=== PATIENT | female | born 1965 ===

== ENCOUNTER 2018-11-05 03:08 | Emergency (ER) | payer MEDICAID, OTHER ==
[2018-11-05 04:30] LABS: Absolute Lymphocytes (CBC) 1.6 K/uL (0.7-4.9); Basophils % 0.7 % (0-1.3); Eosinophils % 2.4 % (0-4.4); Hematocrit 43.3 % (36.0-45.0); Lymphocytes % 25.2 % (15.3-44.8); MPV 9.8 fL (7.6-11.3); Monocytes % 8.7 % (3.3-12.3); RBC Red Blood Cell Count 4.58 M/uL (3.86-4.86)
[2018-11-05 04:44] LABS: ALT/SGPT 127 U/L (12-78); AST/SGOT 92 U/L (15-37); Albumin 3.9 g/dL (3.4-5.0); Alkaline Phosphatase 86 U/L (45-117); BUN Blood Urea Nitrogen 8 mg/dL (7-18); Bicarbonate 26 mmol/L (21-32); Bilirubin Direct 0.2 mg/dL (0-0.2); Bilirubin Total 0.5 mg/dL (0.2-1.0); Glucose Level 88 mg/dL (74-106); Lipase 121 U/L (73-393); NT PRO-BNP 44 pg/mL (<125); Potassium 3.6 mmol/L (3.5-5.1); Protein, Total 7.1 g/dL (6.4-8.2); Sodium Level 139 mmol/L (136-145); Troponin (Emerg Dept Use Only) < 0.02 ng/mL (0.0-0.045)
--- NOTE | 2018-11-05 06:50 | ER ---
Nurse's Notes [facility] Name: Naa Lewis Age: 53 yrs Sex: Female : 1965 Arrival Date: 11/05/2018 Time: 03:14 Bed 19 Private MD: Diagnosis: Chest pain, unspecified Presentation: 11/05 03:23 Presenting complaint: Patient states: left chest wall pain that radiates to back ak1 started at 0030. pt admits to ETOH. pt denies N/V, denies SOB. Transition of care: patient was not received from another setting of care. Onset of symptoms was November 05, 2018. Risk Assessment: Do you want to hurt yourself or someone else? Patient reports no desire to harm self or others. Initial Sepsis Screen: Does the patient meet any 2 criteria? No. Patient's initial sepsis screen is negative. Does the patient have a suspected source of infection? No. Patient's initial sepsis screen is negative. Care prior to arrival: None. 03:23 Method Of Arrival: Ambulatory ak1 03:23 Acuity: ASHER 3 ak1 Triage Assessment: 03:25 General: Appears in no apparent distress. Behavior is cooperative, anxious. Pain: ak1 Complains of pain in anterior aspect of left upper chest and mid-sternal area Pain radiates to left scapular area and thoracic area. EENT: No signs and/or symptoms were reported regarding the EENT system. Neuro: No deficits noted. Cardiovascular: Reports chest pain, Denies shortness of breath, vomiting. Respiratory: No deficits noted. GI: No signs and/or symptoms were reported involving the gastrointestinal system. : No signs and/or symptoms were reported regarding the genitourinary system. Derm: No signs and/or symptoms reported regarding the dermatologic system. Musculoskeletal: No signs and/or symptoms reported regarding the musculoskeletal system. 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 - Social history:: Smoking status: Patient uses tobacco products, denies chronic smoking, but will smoke occasionally, Patient uses alcohol, had vodka tonight. - Ebola Screening: : No symptoms or risks identified at this time. - Family history:: not pertinent. - Hospitalizations: : No recent hospitalization is reported. Screenin:27 Abuse screen: Denies threats or abuse. Denies injuries from another. Nutritional ak1 screening: No deficits noted. Tuberculosis screening: No symptoms or risk factors identified. Fall Risk None identified. Assessment: 03:30 General: Appears in no apparent distress. comfortable, Behavior is calm, cooperative, aa1 appropriate for age. Pain: Complains of pain in anterior aspect of left upper chest Pain radiates to thoracic area and left scapular area. Neuro: Level of Consciousness is awake, alert, obeys commands, Oriented to person, place, time, situation, Moves all extremities. Full function Gait is steady, Speech is normal. Cardiovascular: Reports chest pain, palpitations, Denies Heart tones S1 S2 present Capillary refill < 3 seconds Patient's skin is warm and dry. Rhythm is regular. Respiratory: Airway is patent Respiratory effort is even, unlabored, Respiratory pattern is regular, symmetrical, Breath sounds are clear bilaterally. GI: No signs and/or symptoms were reported involving the gastrointestinal system. : No signs and/or symptoms were reported regarding the genitourinary system. EENT: No signs and/or symptoms were reported regarding the EENT system. Derm: Skin is intact, is healthy with good turgor, Skin is pink, warm \T\ dry. 04:49 Reassessment: Patient appears in no apparent distress at this time. Patient and/or aa1 family updated on plan of care and expected duration. Pain level reassessed. Patient is alert, oriented x 3, equal unlabored respirations, skin warm/dry/pink. Awaiting provider reassessment. 05:28 Reassessment: Patient appears in no apparent distress at this time. Patient and/or aa1 family updated on plan of care and expected duration. Pain level reassessed. Patient is alert, oriented x 3, equal unlabored respirations, skin warm/dry/pink. Pt taken to CT at this time. 06:41 Reassessment: Patient appears in no apparent distress at this time. Patient and/or aa1 family updated on plan of care and expected duration. Pain level reassessed. Patient is alert, oriented x 3, equal unlabored respirations, skin warm/dry/pink. Dr. Mcdonough at bedside discussing results with pt. 06:56 Reassessment: Discussed d/c \T\ f/u instructions with pt; denies questions or concerns at aa1 this time. Amb to lobby with steady gait. Vital Signs: 03:22 BP 176 / 94; Pulse 93; Resp 18; Temp 98.1; Pulse Ox 99% on R/A; Weight 79.38 kg (R); ak1 Height 5 ft. 5 in. (165.10 cm) (R); Pain 3/10; 04:03 BP 159 / 95; Pulse 83; Resp 16; Pulse Ox 96% on R/A; aa1 04:49 BP 154 / 89; Pulse 89; Resp 16; Pulse Ox 96% on R/A; aa1 06:41 BP 154 / 93; Pulse 97; Resp 16; Temp 97.9; Pulse Ox 98% on R/A; Pain 2/10; aa1 03:22 Body Mass Index 29.12 (79.38 kg, 165.10 cm) ak1 ED Course: 03:14 Patient arrived in ED. ds1 03:19 Sarath Mcdonough MD is Attending Physician. rn 03:24 Triage completed. ak1 03:25 Arm band placed on Patient placed in an exam room, on a stretcher, on court monitor, ak1 on pulse oximetry, Patient notified of wait time. 03:27 Patient has correct armband on for positive identification. Placed in gown. Bed in low ak1 position. Call light in reach. Side rails up X 1. panel monitor on. Pulse ox on. NIBP on. 03:27 Patient maintains SpO2 saturation greater than 95% on room air. ak1 03:33 Karmen Barker, RN is Primary Nurse. aa1 03:40 Initial lab(s) drawn, by ks, sent to lab. Inserted saline lock: 20 gauge in right aa1 antecubital area, using aseptic technique. Blood collected. 03:50 EKG done, by ED staff, reviewed by Karmen Barker RN. aa1 04:09 XRAY Chest (1 view) In Process Unspecified. EDMS 05:56 CT Aorta for Dissection In Process Unspecified. EDMS 06:56 No provider procedures requiring assistance completed. IV discontinued, intact, aa1 bleeding controlled, No redness/swelling at site. Pressure dressing applied. Administered Medications: No medications were administered Outcome: 06:49 Discharge ordered by . rn 06:56 Discharged to home ambulatory. aa1 06:56 Condition: good 06:56 Discharge instructions given to patient, Instructed on discharge instructions, follow up and referral plans. Demonstrated understanding of instructions, follow-up care. 07:01 Patient left the ED. aa1 Signatures: Dispatcher [employer] Karmen Gerber RN RN aa1 Vanesa Gottlieb ds1 Sarath Mcdonough MD MD rn Krenek, Amber, RN RN ak1
--- NOTE | 2018-11-05 06:50 | EDPHYS ---
Physician Documentation [facility] Name: Naa Lewis Age: 53 yrs Sex: Female : 1965 Arrival Date: 11/05/2018 Time: 03:14 Bed 19 Private MD: ED Physician Sarath Mcdonough HPI: 11/05 03:54 This 53 yrs old Unknown Female presents to ER via Ambulatory with complaints of Chest rn Pain. 03:54 The patient or guardian reports chest pain that is located primarily in the substernal rn area. Onset: this morning. The pain radiates to Associated signs and symptoms: Pertinent positives: None. Pertinent negatives: abdominal pain, cough, dizziness, headache, palpitations, shortness of breath, syncope, vomiting. The chest pain is described as burning, a heaviness. Duration: The patient or guardian reports a single episode, that is still ongoing. Modifying factors: The symptoms are alleviated by nothing. the symptoms are aggravated by nothing. Severity of pain: At its worst the pain was moderate in the emergency department the pain has improved. The patient has not experienced similar symptoms in the past. The patient has not recently seen a physician. 03:54 Reports chest pain, radiates to back, began when trying to go to sleep, a little ETOH rn today but not a lot, reports father with cardiac bypass, non-smoker, no leg swelling, no hx of dvt/pe.. 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 - Social history:: Smoking status: Patient uses tobacco products, denies chronic smoking, but will smoke occasionally, Patient uses alcohol, had vodka tonight. - Ebola Screening: : No symptoms or risks identified at this time. - Family history:: not pertinent. - Hospitalizations: : No recent hospitalization is reported. ROS: 03:54 Constitutional: Negative for fever, chills, and weight loss, Eyes: Negative for injury, rn pain, redness, and discharge, Neck: Negative for injury, pain, and swelling, Cardiovascular: Negative for palpitations, and edema, Respiratory: Negative for shortness of breath, cough, wheezing, and pleuritic chest pain, Abdomen/GI: Negative for abdominal pain, nausea, vomiting, diarrhea, and constipation, Back: Negative for injury MS/Extremity: Negative for injury and deformity, Skin: Negative for injury, rash, and discoloration, Neuro: Negative for headache, weakness, numbness, tingling, and seizure. Exam: 03:54 Constitutional: This is a well developed, well nourished patient who is awake, alert, rn appears anxious Head/Face: Normocephalic, atraumatic. Eyes: Pupils equal round and reactive to light, extra-ocular motions intact. Lids and lashes normal. Conjunctiva and sclera are non-icteric and not injected. Cornea within normal limits. Periorbital areas with no swelling, redness, or edema. ENT: MMM Cardiovascular: Regular rate and rhythm. No pulse deficits. Respiratory: Lungs have equal breath sounds bilaterally, clear to auscultation. No increased work of breathing, no retractions or nasal flaring. Abdomen/GI: soft, non-tender MS/ Extremity: Pulses equal, no cyanosis. Neurovascular intact. Full, normal range of motion. Equal circumference. Neuro: Awake and alert, GCS 15, oriented to person, place, time, and situation. Cranial nerves II-XII grossly intact. Motor strength 5/5 in all extremities. Sensory grossly intact. 03:57 ECG was reviewed by the Attending Physician. rn Vital Signs: 03:22 BP 176 / 94; Pulse 93; Resp 18; Temp 98.1; Pulse Ox 99% on R/A; Weight 79.38 kg (R); ak1 Height 5 ft. 5 in. (165.10 cm) (R); Pain 3/10; 04:03 BP 159 / 95; Pulse 83; Resp 16; Pulse Ox 96% on R/A; aa1 04:49 BP 154 / 89; Pulse 89; Resp 16; Pulse Ox 96% on R/A; aa1 06:41 BP 154 / 93; Pulse 97; Resp 16; Temp 97.9; Pulse Ox 98% on R/A; Pain 2/10; aa1 03:22 Body Mass Index 29.12 (79.38 kg, 165.10 cm) ak1 MDM: 03:19 Patient medically screened. rn 05:58 Differential diagnosis: acute myocardial infarction, acute pericarditis, anxiety, rn coronary artery disease chest wall pain, costochondritis, gastritis, gastroesophageal reflux disease (GERD), pericarditis, pleurisy, pneumothorax, stable angina, thoracic aortic disection. Data reviewed: vital signs, nurses notes, lab test result(s), EKG, radiologic studies, CT scan, plain films. Counseling: I had a detailed discussion with the patient and/or guardian regarding: the historical points, exam findings, and any diagnostic results supporting the discharge/admit diagnosis, lab results, radiology results, the need for outpatient follow up, to return to the emergency department if symptoms worsen or persist or if there are any questions or concerns that arise at home. Response to treatment: the patient's symptoms have mildly improved after treatment, and as a result, I will discharge patient. ED course: Patient so far with negative w/u, CT aorta ordered for hypertension and pain radiating to back, along with mild widened mediastinum on cxr. Had discussion with patient, told her safest option is to admit for further w/u and cardiac consult, patient states if CT normal would like to go home and be worked up as outpatient, has appt tomorrow. Return precautions given and understood. . 06:47 ED course: CT aorta negative for acute findings. + nonspecific colitis and bladder wall rn thickening, but patient otherwise asymptomatic. Will dc home with pcp and cardiology f/u. . 11/05 03:27 Order name: Basic Metabolic Panel; Complete Time: 04:52 rn 11/05 03:27 Order name: CBC with Diff; Complete Time: 04:52 rn 11/05 03:27 Order name: LFT's; Complete Time: 04:52 rn 11/05 03:27 Order name: NT PRO-BNP; Complete Time: 04:52 rn 11/05 03:27 Order name: Troponin (emerg Dept Use Only); Complete Time: 04:52 rn 11/05 03:27 Order name: Lipase; Complete Time: 04:52 rn 11/05 03:27 Order name: XRAY Chest (1 view) rn 11/05 03:27 Order name: EKG; Complete Time: 03:51 rn 11/05 03:27 Order name: Cardiac monitoring; Complete Time: 04:02 rn 11/05 03:27 Order name: EKG - Nurse/Tech; Complete Time: 04:02 rn 11/05 03:27 Order name: IV Saline Lock; Complete Time: 04:02 rn 11/05 03:27 Order name: Labs collected and sent; Complete Time: 04:02 rn 11/05 03:27 Order name: O2 Per Protocol; Complete Time: 04:03 rn 11/05 05:00 Order name: CT Aorta for Dissection rn 11/05 03:27 Order name: O2 Sat Monitoring; Complete Time: 04:03 rn EC:57 Rate is 85 beats/min. Rhythm is regular. QRS [place] is Normal. [place] interval is normal. QRS rn interval is normal. QT interval is normal. No Q waves. T waves are Normal. No ST changes noted. Clinical impression: Normal ECG. Interpreted by me. Reviewed by me. Administered Medications: No medications were administered Disposition: 11/05/18 06:49 Discharged to Home. Impression: Chest pain, unspecified. - Condition is Stable. - Discharge Instructions: Nonspecific Chest Pain, Pulmonary Nodule, Nonalcoholic Fatty Liver Disease Diet. - Medication Reconciliation Form, Thank You Letter, Antibiotic Education, Prescription Opioid Use form. - Follow up: Private Physician; When: As needed; Reason: Recheck today's complaints, Re-evaluation by your physician. - Problem is new. - Symptoms have improved. Signatures: Dispatcher [employer] EDMS Karmen Barker, RN RN aa1 Sarath Mcdonough MD MD rn Krenek, Amber, FERNANDA RN ak1 Corrections: (The following items were deleted from the chart) 07:01 06:49 11/05/2018 06:49 Discharged to Home. Impression: Chest pain, unspecified. aa1 Condition is Stable. Forms are Medication Reconciliation Form, Thank You Letter, Antibiotic Education, Prescription Opioid Use. Follow up: Private Physician; When: As needed; Reason: Recheck today's complaints, Re-evaluation by your physician. Problem is new. Symptoms have improved. rn
--- NOTE | 2018-11-05 08:20 | RAD REPORT ---
EXAM DESCRIPTION: RAD - Chest Single View - 11/05/2018 4:01 am CLINICAL HISTORY: CHEST PAIN Chest pain. COMPARISON: Angio Aorta For Dissection dated 11/05/2018 FINDINGS: Portable technique limits examination quality. The lungs are grossly clear. The heart is normal in size. Mildly tortuous thoracic aorta. No displace d fractures. IMPRESSION: No acute intrathoracic process suspected.
--- NOTE | 2018-11-05 09:55 | EKG ---
Test Date: 2018-11-05 Test Time: 03:48:13 Epic Anesthesia Analyst: TITO MEASUREMENT RESULTS: Intervals: Rate: 85 CA: 140 QRSD: 82 QT: 388 QTc: 461 [place]: P: 20 CA: 140 QRS: 21 T: 44 INTERPRETIVE STATEMENTS: Normal sinus rhythm Normal ECG No previous ECG available for comparison Electronically Signed On 11-05-18 09:54:08 CDT by Pablo Doss
--- NOTE | 2018-11-05 09:56 | RAD REPORT ---
EXAM DESCRIPTION: Angio Aorta For Dissection TECHNIQUE: CTA Chest With Intravenous Contrast CTA Abdomen and Pelvis With Intravenous Contrast CLINICAL HISTORY: The patient is 53 years years old, Female; chest pain radiating to back, hypertens luanne TECHNIQUE: Axial computed tomography images of the chest, abdomen and pelvis with intravenous contra st during the arterial phase of enhancement. Sagittal and coronal reformatted images were created a nd reviewed. Sagittal and coronal reformatted images were created and reviewed. This CT exam was performed using one or more of the following dose reduction techniques: automated exposure control, adjustment of the mA and/or kV according to patient size, and/or use of iterative reconstruction jacqueline hnique. COMPARISON: No relevant prior studies available. FINDINGS: VASCULATURE: AORTA: The aorta is normal with no evidence of aneurysm or dissection. PULMONARY ARTERIES: Evaluation of the pulmonary arterial vessels demonstrates no CT evidence of ac [place] pulmonary embolus. There is no evidence of right to left interventricular septal bowing. GREAT VESSELS OF AORTIC ARCH: No acute findings. No dissection. No arterial occlusion or signi ficant stenosis. CELIAC TRUNK AND MESENTERIC ARTERIES: No acute findings. No occlusion or significant stenosis. RENAL ARTERIES: No acute findings. No occlusion or significant stenosis. ILIAC ARTERIES: No acute findings. No occlusion or significant stenosis. CHEST: LUNGS: There is diffuse interstitial prominence. There is no evidence of acute consolidative pneum onia. There are a couple of 3 mm pleural-based nodular density in the left upper lobe (series 401, im ages 15 and 17). PLEURAL SPACE: No pleural effusions or pneumothoraces. HEART: unremarkable No cardiomegaly. No significant pericardial effusion. No evidence of RV dysfunction. ABDOMEN: LIVER: There is a diffuse moderate to severe decrease in hepatic parenchymal attenuation within at tenuation of the liver measuring 25 Hounsfield units as compared to the spleen which measures 1:30 Ho unsfield units. Moderate to severe hepatic steatosis. GALLBLADDER AND BILE DUCTS: Unremarkable. No calcified stones. No ductal dilation. PANCREAS: Unremarkable. No ductal dilation. No mass. SPLEEN: See above. ADRENALS: Unremarkable. No mass. KIDNEYS AND URETERS: There are no acute findings in the kidneys. There is no evidence of solid mas s, hydronephrosis or radiopaque nonobstructive kidneys intrarenal calculi. There is a tiny hypodensit y in the lower pole left kidney which is technically too small to characterize. STOMACH AND BOWEL: The descending and sigmoid colon appear thick walled which may relate to nondis tention versus mild nonspecific colitis. There are small number of scattered colonic diverticula. PELVIS: APPENDIX: The appendix is present and appears normal. BLADDER: The urinary bladder appears thick walled up to 6 mm. No evidence of cystolithiasis or d iscrete bladder mass. REPRODUCTIVE: The uterus appears mildly enlarged and slightly lobulated suggesting leiomyomatous c hanges. The uterus measures 9.7 cm longitudinally by 5.8 cm AP by 6.2 cm T. There are no adnexal cyst s or masses. CHEST, ABDOMEN and PELVIS: INTRAPERITONEAL SPACE: Unremarkable. No significant fluid collection. No free air. BONES/JOINTS: There is no evidence of fracture, osseous destruction or osteoblastic lesions. No di slocation. SOFT TISSUES: Unremarkable. LYMPH NODES: There is no evidence of hilar, mediastinal, axillary, mesenteric, retroperitoneal, pe lvic or inguinal adenopathy. OTHER FINDINGS: . IMPRESSION: 1. The aorta is normal with no evidence of aneurysm or dissection. 2. No evidence of acute pulmonary emboli. 3. Tiny nodules in the left upper lobe 2017 Fleischner Society Recommendations for Multiple Solid L jade Nodules Follow-Up base on size (average of long- and short-axis diameters). Use most suspicious n odule for followup. Nodule Size 4. The descending and sigmoid colon appear thick walled which ma y relate to nondistention versus mild nonspecific colitis. 5. The appearance of the bladder wall thickening, defined as greater than 3 mm in a distended bladd er and greater than 5 mm when nondistended, may be caused or exaggerated by incomplete distention. Ho wever, cystitis is also suspected. Other less likely differential considerations include neurogenic b ladder and detrusor muscle hypertrophy as can occur with bladder outlet obstruction or autonomic dysf unction in the appropriate clinical setting. Recommend correlation with urinalysis. Electronically signed by: Gabi Howe MD 11/05/2018 6:30 AM CDT Due to temporary technical issues with the PACS/Fluency reporting system, reports are being signed by the in house radiologist as a courtesy to ensure prompt reporting. The interpreting radiologist is f conchaly responsible for the content of the report.
== END 2018-11-05 07:01 | disposition home or self-care (01) ==
LOC: ER 03:08
DX: R07.9 Chest pain, unspecified (principal); Z72.0 Tobacco use; Z85.3 Personal history of malignant neoplasm of breast
CPT/HCPCS: 36415; 71045; 71275; 74175; 80048; 80076; 83690; 83880; 84484; 85025; 93005; 99285; Q9967